=== PATIENT | female | born 1955 | race Caucasian/White ===

== ENCOUNTER → 2021-06-08 | Outpatient (CLI) | payer MEDICARE, MEDICAID ==
[~2021-06-08] MED LIST: EMPA25TA PO; INSU100I34 SQ; INSU100V11 SQ; INSU100V5 SC; LEVO50TA5 PO; LISI1TAB20 PO; LOSA1TAB22 PO; METF10002 PO; SIMV20TA19 PO; TRANEXAMIC ACID 100 MG/ML, 10ML ONE
[2021-06-08 13:12] LABS: ALANINE AMINOTRANSFERASE 29 U/L (12-78); ALBUMIN 3.9 g/dL (3.4-5.0); ANION GAP 4 mmol/L (5-15); CALCIUM 9.5 mg/dL (8.5-10.1); CHLORIDE 100 mmol/L (98-107); CREATININE 0.91 mg/dL (0.55-1.02)
[2021-06-08 13:14] LABS: ALKALINE PHOSPHATASE 82 U/L (45-117); BILIRUBIN,TOTAL 0.4 mg/dL (0.2-1.0); TOTAL PROTEIN 8.3 g/dL (6.4-8.2)
[2021-06-08 13:41] LABS: BASOPHILS % (AUTO) 1 % (0-1); EOSINOPHILS % (AUTO) 4 % (1-7); LYMPHOCYTES % (AUTO) 39 % (22-44); MEAN CORPUSCULAR HEMOGLOBIN 29.7 pg (27.0-34.8); MEAN CORPUSCULAR HGB CONC 32.8 g/dL (32.4-35.8); MEAN PLATELET VOLUME 8.8 fL (7.4-10.4); MONOCYTES % (AUTO) 9 % (2-9); NEUTROPHILS % (AUTO) 48 % (42-75); PLATELET COUNT 339 x10^3/uL (130-400); RED BLOOD COUNT 5.56 x10^6/uL (3.82-5.3); RED CELL DISTRIBUTION WIDTH 14.2 % (9.6-15.2)
[2021-06-08 13:48] LABS: INTERNATIONAL NORMALIZED RATIO 1.01 (0.93-1.1); PROTHROMBIN TIME 10.8 Seconds (9.6-11.5)
== END | disposition home or self-care (01) ==
LOC: STAR 11:31
PROVIDERS: ATTEND Orthopaedic Surgery
DX: Z01.812 Encounter for preprocedural laboratory examination (principal); Z20.822 Contact with and (suspected) exposure to COVID-19; M25.562 Pain in left knee; R94.31 Abnormal electrocardiogram [ECG] [EKG]; I25.2 Old myocardial infarction
CPT/HCPCS: 36415; 80053; 83036; 85025; 85610; 87081; 93005; U0003; U0005

== ENCOUNTER 2021-06-12 11:13 | Day surgery (SDC) | payer MEDICARE, MEDICAID ==
[~2021-06-12] VITALS: Ht 160 cm; Wt 93.0 kg
[~2021-06-12 11:13] MED LIST changes: +ACETAMINOPHEN 325 MG TABLET PO PRN; +ACETAMINOPHEN 650 MG/20.3 ML UDC PO PRN; +ALBUTEROL SULFATE 2.5 MG/3 ML NPPB PRN; +BISACODYL 10 MG SUPP PR PRN; +CEFAZOLIN PMX 2GM/50ML 50 ML IVPB SCH; +DIPHENHYDRAMINE 50 MG CAPSULE PO PRN; +DOCUSATE 100 MG CAPSULE PO SCH; +EPINEPHRINE 1 MG/ML, 1ML ONE; +FENTANYL PF 100 MCG/2ML IV PRN; +FENTANYL PF 250 MCG/5ML ONE; +HYDROcodone/APAP 5/325 TABLET PO PRN; +HYDROmorphone 1 MG/ML, 1ML INJ IV PRN; +HYDROmorphone 1 MG/ML, 1ML INJ IVPush PRN; +KETOROLAC 30 MG/1 ML ONE; +KETOROLAC 60 MG/2 ML ONE; +LABETALOL 5MG/ML, 20ML IV PRN; +LEVOTHYROXINE 50 MCG TABLET PO SCH; +LORazepam 2 MG/ML, 1ML IVPush PRN; +MAGNESIUM HYDROXIDE 8%, 30ML UDC PO PRN; +MEPERIDINE/PF 25MG/0.5ML IVPush PRN; +METHOCARBAMOL 1,000 MG in DEXTROSE 5% 100 ML IV PRN; +MIDAZOLAM 1 MG/ML, 2ML ONE; +NS + 20MEQ KCL 1,000 ML IV SCH; +ONDANSETRON 2MG/ML, 2ML IV PRN; +ONDANSETRON 4 MG TABLET PO PRN; +OXYcodone 5 MG/5 ML ORAL.SOL UDC PO PRN; +OXYcodone IR 5MG TABLET PO PRN; +PROMETHAZINE 25 MG/ML, 1ML IVPush PRN; +ROPIvacaine/PF 0.5%, 20 ML ONE; +SENNA/DOCUSATE TABLET PO PRN; +SODIUM CHLORIDE 0.9% 50 ML ONE; +TEMPLATE NON-FORMULARY MED. (Losartan/Hydrochlorothiazide** (Losartan-Hctz 100-25 Mg Tab PO SCH; +VANCOMYCIN 1,000 MG ONE; +ZOLPIDEM 5MG TABLET PO PRN
[2021-06-12 11:29] VITALS: BP 156/90
[2021-06-12] MEDS ORDERED: ACETAMINOPHEN 500 MG TABLET PO ONE (11:30)
[2021-06-12] MEDS ORDERED: GABAPENTIN 300 MG CAPSULE PO ONE (11:30)
[2021-06-12] MEDS ORDERED: LACTATED RINGERS 1,000 ML IV SCH (11:30)
[2021-06-12] MEDS ORDERED: CHLORHEXIDINE 15 ML UDC PO ONE (11:30)
[2021-06-12] MEDS ORDERED: GABAPENTIN 300 MG CAPSULE ONE (11:36)
[2021-06-12] MEDS ORDERED: ACETAMINOPHEN 500 MG TABLET ONE (11:36)
[2021-06-12] MEDS ORDERED: CHLORHEXIDINE 15 ML UDC ONE (11:36)
[2021-06-12] MEDS ORDERED: DEXAMETHASONE 4 MG/ML, 1ML ONE (13:18)
[2021-06-12] MEDS ORDERED: PROPOFOL 10 MG/ML, 20ML ONE (13:18)
[2021-06-12] MEDS ORDERED: ONDANSETRON 2MG/ML, 2ML ONE (13:18)
[2021-06-12] MEDS ORDERED: LIDOCAINE-MPF 2% ,5ML ONE (13:18)
[2021-06-12] MEDS ORDERED: CEFAZOLIN 1,000 MG ONE (13:18)
[2021-06-12] MEDS ORDERED: BUPIVACAINE/PF 0.5% ONE (13:18)
[2021-06-12] MEDS ORDERED: FENTANYL PF 100 MCG/2ML ONE (13:51)
[2021-06-12] MEDS ORDERED: OXYcodone 5 MG/5 ML ORAL.SOL UDC ONE (13:51)
[2021-06-12] MEDS ORDERED: ASPIRIN 81 MG TABLET EC PO SCH (18:00)
== END 2021-06-12 17:11 | disposition home or self-care (01) ==
LOC: OUT 11:13
PROVIDERS: ATTEND Orthopaedic Surgery
DX: M17.12 Unilateral primary osteoarthritis, left knee (principal); M25.762 Osteophyte, left knee; I10 Essential (primary) hypertension; E78.5 Hyperlipidemia, unspecified; E66.9 Obesity, unspecified; Z79.899 Other long term (current) drug therapy; Z87.81 Personal history of (healed) traumatic fracture
CPT/HCPCS: 20985; 27447; 64447; 82962; 97162; 97165; C1713; C1776; J0171; J0690; J1100; J1885; J2250; J2405; J2704; J2795; J3010; J3370; J7120